=== PATIENT | male | born 2000 | race Caucasian/White ===

== ENCOUNTER 2025-07-16 00:27 | Emergency (ER) | payer OTHER, SELFPAY ==
[2025-07-16 00:28] VITALS: BP 172/91; PULSE 99; RESP 24; TEMP 36.9; O2SAT 100; BMI 55.0
--- NOTE | 2025-07-16 01:10 | RAD_ITS ---
PROCEDURE: CHEST PA AND LATERAL 07/16/2025 REASON FOR EXAM: COUGH TECHNIQUE: Procedure Code: RADCXR Modality: DX Procedure: CHEST PA AND LATERAL COMPARISON: None. FINDINGS: Mild bilateral peribronchial interstitial thickening, probably bronchitis. There is no demonstrated pleural abnormality. Normal heart and pericardium. Normal mediastinum and rachell. Normal visualized pulmonary arteries. Normal visualized aortic arch and descending thoracic aorta. Normal visualized thoracic spine. Normal visualized ribs, clavicles, and shoulders. There is no demonstrated abnormality of the visualized soft tissue structures of the upper abdomen. RAD/Chest PA and Lateral IMPRESSION: Bronchitis. [facility]
--- NOTE | 2025-07-16 01:19 | EDS_ITS ---
HPI History of Present Illness Chief Complaint: General Illness Informant: patient and spouse/S.O. Narrative Narrative: Patient is a 25-year-old male with no significant PMHx presenting with persistent cough. - Cough began 6 days ago and has become more frequent. - Describes a tickling sensation when inhaling, triggering the cough. - Associated symptoms include rhinorrhea and pharyngitis. - Denies fever, dyspnea, otalgia, or abdominal pain. - Reports soreness in the chest area when coughing, attributing it to the frequent coughing. - Denies history of asthma or other medical conditions. PFSH PFSH Medical History no medical history no medical history Home Medications ?Medication ?Instructions ?Recorded ?Last Taken ?Type benzonatate 100 mg capsule 200 mg (2 x 100 mg) PO TID PRN PRN 07/16/25 Unknown Rx Cough #20 CAPSULES Allergy/AdvReac Type Severity Reaction Status Date / Time No Known Allergies Allergy Verified 07/16/25 00:27 Surgical History no surgical history Social History Smoking Status: Never smoker ROS ROS ED Constitutional Constitutional ED: Denies chills or fever(s) ENT ENT ED: Reports rhinorrhea and sore throat; Denies ear pain or nasal congestion Cardiovascular Cardiovascular: Denies chest pain or palpitations Respiratory/Chest Respiratory/Chest: Reports cough; Denies dyspnea or sputum Gastrointestinal Gastrointestinal: Denies abdominal pain, diarrhea, nausea or vomiting Genitourinary Genitourinary ED: Denies dysuria or hematuria Musculoskeletal Musculoskeletal: Denies myalgias or neck pain Integumentary Denies abscess or rash Neurologic Neurologic: Denies headache(s), paresthesias or weakness Psychiatric Psychiatric: Denies depression or suicidal thoughts Endocrine Endocrinology: Denies polydipsia or polyuria EXAM Physical Exam Const Vital Signs: 07/16/25 00:28 07/16/25 00:40 Temperature 98.5 F Temperature Source Oral Pulse Rate 99 Respiratory Rate 24 H Respiratory Effort Normal Respiratory Pattern Normal Blood Pressure 172/91 H Blood Pressure Mean 118 Pulse Ox 100 Oxygen Delivery Method Room Air Positive well nourished, well developed and obese General Appearance ED: well developed and NAD Nutritional Appearance: obese HEENT Reports moist mucous membranes normocephalic and atraumatic Throat: Negative for posterior oropharynx abnormal Eyes PERRL and EOMs intact bilaterally Neck no lymphadenopathy, supple and no meningeal signs Resp normal respiratory effort and clear to auscultation bilaterally Cardio no murmurs Rate: regular rate Rhythm: regular rhythm Neuro oriented x3, CN's II-XII intact bilaterally and no sensory deficits noted Sensorium / Orientation: alert Motor Exam: strength 5/5 throughout Skin Lesions: no lesions Rashes: no rashes MDM MDM MDM Narrative Medical decision making narrative: Assessment: The patient is a 25-year-old male presenting for a 6-day history of persistent, progressively more frequent cough accompanied by runny nose and sore throat, without fever or shortness of breath. Lung auscultation was benign and chest X-ray showed no infiltrate or consolidation. Given the normal imaging and typical viral prodrome, acute viral bronchitis is the most likely diagnosis; antibacterial therapy is not indicated. Plan: - Administered single dose of cough medicine in ED for symptomatic relief - Prescription provided for outpatient cough suppressant - Discharge home with return precautions and routine outpatient care instructions - Blood pressure was elevated, will need follow-up appointment for recheck. Diagnostics: - Chest X-ray: clear lung maurice; no focal infiltrate or consolidation; heart size normal. Independently interpreted by Rush reynoso. Reevaluations: - Informed patient that chest X-ray was normal; discussed viral bronchitis diagnosis and symptomatic management Diagnoses: Acute bronchitis; Episode of hypertension Discharge Plan Triage Chief Complaint: General Illness ED Provider: Rush Tadeo Dx/Rx/DC Orders Clinical Impression: Acute bronchitis, viral, Episode of hypertension Instructions: ED Bronchitis, No Antibiotic (Adult), ED Hypertension, To Be Confirmed Prescriptions: New benzonatate 100 mg capsule 200 mg PO TID PRN PRN (Reason: Cough) Qty: 20 0RF Primary Care Provider: Care Physician,No Primary Referrals: Doctor,Your [Non-Staff, None] - 10-14 Days if not better Activity Restrictions/Additional Instructions: Tonight your blood pressure was 172/91. Make a routine follow-up appointment with your doctor to have this rechecked. It may simply be elevated tonight because you are ill and cannot stop coughing, but if it is persistent you may need to be on medication. Print Language: Ecuadorean Disposition Disposition: Home, Self Care
[2025-07-16 01:20] VITALS: BP 141/82; PULSE 79; RESP 19; TEMP 36.9; O2SAT 99
--- OUTSIDE RECORDS SUMMARY | 2025-07-16 01:26 | XMS RPT_ITS | CCD ---
Author Organization [facility] Care Team Providers Care Administration Professional Name Role Phone TIFFANI NULL Unavailable Unavailable Allergies Allergy Classification Reported Allergen(s) Allergy Type Date of Onset Reaction(s) Facility (1 source) OTHER; Translations: [OTHER] Propensity to adverse reactions (disorder) [facility] Repository Problems Problem Classification Problem Date Documented Da te Episodic/Chronic Unclassified (1 source) Unknown / UNK(Unknown) Onset: 05-31-2017 Results Test Name Value Interpretation Reference Range Facility Urgent Care Visit Reporton 1 Urgent Care Visit Report [facility] [address] [place] [address] [address] [place] [address] OFFICE VISIT Date of Service: 09/22/21 MR#: [id number] Acct: [id number] Name: KAHLIL SAUCEDO Rep #: [id number] : 2000 Provider: TEVIN Zepeda Age/Sex: 21/M Location: [facility] Status: Signed Intake Vital Signs 09/22/21 12:57 Height 6 ft 2 in Weight: 365 lb BMI 46.8 BP 150/96 H Blood Pressure Location Lt brachial Position Sitting Respiration 15 Pulse 81 Pulse Source Monitor Temp 98.1 F Temp Source Temporal Pulse Oximetry (%) 98 Oxygen Delivery Method room air Intake Visit Reasons: EXPOSED/COVID TEST Allergies No Known Allergies Allergy (Unverified 09/22/21 12:58) Medications NK 09/22/21 [History Confirmed 09/22/21] HPI HPI Details: KAHLIL SAUCEDO, is a 21 M who presents to the office today for request of a Covid test after exposure. Patient denies any current symptoms. ROS Const Constitutional: Positive for other (6 system ROS completed with pertinent findings in the HPI otherwise normal.) Exam Const General: cooperative and healthy appearing [facility] Head: normocephalic and atraumatic Ears: hearing grossly normal bilaterally Nose: external nose normal Face and sinus: normal facial exam and face symmetric Mouth: oral mucosae normal Throat: posterior oropharynx normal Eyes General: appearance normal, both eyes and all related structures Resp Effort Inspection: normal respiratory effort Auscultation: Bilateral: Clear to Auscultation Cardio Palpation: normal PMI Rate: regular rate Rhythm: regular rhythm Skin General: no rashes or lesions noted Neuro General: patient alert and CN's II-XI intact bilaterally Psych Appearance: grossly normal Mental Status: mental status grossly normal Results POC SARS AG POC SARS AG Negative Last Edit by Elyse Hernandez RN on 09/22/21 13:09 Coding Level of Care Code Off vis,new,level 3 Diagnoses Encounter for screening for COVID-19 Z11.52 Assessment and Plan Assessment and Plan (1) Encounter for screening for COVID-19: Status: Acute Plan - Tab ABARCA PA: Patient tested negative for Covid in the office today. Patient verbalized understanding and agreement with all the above. Plan Details Other Orders: Orders: POC Rapid SARS Antigen Today R05.9 09/22/21 1320 Date Tab ABARCA Cosigner Signature: Date (if applicable) CC: [facility] OBSOLETEon 09-30-2017 OBSOLETE Refill (PEDSWS) -KAHLIL SAUCEDO ([id number]) 2000 MDate Time Provider Department09/30/17 DEBRA IVERSON During your visit today, we recorded the following information about you:Marline Albrecht RN 09/30/2017 12:58 PM SignedLast [facility]: 05/31/2017Verify RX Benefits CompletedLast medication refill date: 07/30/2017Requesting 30 day supplyRetail pharmacy updated: CompletedImmunizations due:HPV VACCINE(1 of 3 - Male 3 Dose Series) due on 2010INFLUENZA(1) due on 05/24/2017Tera Ambrocio RNMarline Albrecht RN 09/30/2017 12:57 PM Signed 5 to Go!TM Healthy Kids InsideANDamp; Out 5 Eat FIVE fruits and veggies a day4 Give and get FOUR compliments a day3 Consume THREE calcium products a day2 Limit media time to TWO hours a day1 Get at least ONE hour of exercise a day0 Consume ZERO sugar-sweetened drinksGo! Be healthy, inside and out!www.[email or web address].[email or web address]/5 toGo Get tips for raising a healthier family. Sign up for Parents Be Welle-newsletter at [facility].org/ parentsbewell Explore our services, locations and more at [facility].org Find a wealth of family health ANDamp; wellness tips at[facility].or g/healthhub Like us on Facebook at facebook.[email or web address] Dalila Iverson MD 09/30/2017 6:24 PM SignedChart and medications reviewed.Refill on 09/30/17-lisdexamfetamine (VYVANSE) 60 mg capsule-lisdexamfetamine (VYVANSE) 60 mg capsule-lisdexamfetamine (VYVANSE) 60 mg capsulePrescription printed. Liza Baez LPN 10/01/2017 9:39 AM SignedThe following prescription has been printed and is located at the front deskfor patient fruit or nut picker. .Signed Prescriptions Disp Refills lisdexamfetamine (VYVANSE) 60 mg capsule 30 capsule 0 Sig: Take 1 capsule by mouth once daily for 30 days.Earliest Fill Date:09/30/17 AVERY Class: C-II Authorizing Provider: DEBRA IVERSON lisdexamfetamine (VYVANSE) 60 mg capsule 30 capsule 0 Sig: Take 1 capsule by mouth once daily for 30 days.Earliest Fill Date:10/30/17 AVERY Class: C-II Authorizing Provider: DEBRA IVERSON lisdexamfetamine (VYVANSE) 60 mg capsule 30 capsule 0 Sig: Take 1 capsule by mouth once daily for 30 days.Earliest Fill Date:11/29/17 AVERY Class: C-II Authorizing Provider: DEBRA IVERSON As of Date: 09/30/2017 Noted Allergy Reactionenviromental [Other] 11/30/2005Date Reviewed: 06/28/2017Reviewed by: Heather OwenBenjamin [facility]) Marlene - Fully AssessedReason for Visit: Refill Request [94]Visit Diagnosis:Attention deficit hyperactivity disorder (ADHD), unspecified ADHD type [F90.9]Order(s):lisdexamfetam ine (VYVANSE) 60 mg capsuleTake 1 capsule by mouth once daily for 30 days.Earliest Fill Date: 09/30/17Disp: 30 capsuleRfl: 0 [START ON 10/30/2017] lisdexamfetamine (VYVANSE) 60 mg capsuleTake 1 capsule by mouth once daily for 30 days.Earliest Fill Date: 10/30/17Disp: 30 capsuleRfl: 0 [START ON 11/29/2017] lisdexamfetamine (VYVANSE) 60 mg capsuleTake 1 capsule by mouth once daily for 30 days.Earliest Fill Date: 11/29/17Disp: 30 capsuleRfl: 0Prescriptions as of 09/30/2017 Sig: LISDEXAMFETAMINE 60 MG CAPSULE Take 1 capsule by mouth once * LISDEXAMFETAMINE 60 MG CAPSULE Take 1 capsule by mouth once * LISDEXAMFETAMINE 60 MG CAPSULE Take 1 capsule by mouth once * FLUOXETINE 20 MG CAPSULE Take 1 capsule by mouth once *Problem List As Of Date 09/30/2017 Noted Resolved ADHD (attention deficit hyperactivity disorder)*INVALID FOR* Autistic spectrum disorder [F84.0] INVALID FOR* Depression [F32.9] INVALID FOR* Obesity without serious comorbidity [E66.9] INVALID FOR* Other instructions from your clinician: 5 to Go!TM Healthy Kids Inside AND Out 5 Eat FIVE fruits and veggies a day 4 Give and get FOUR compliments a day 3 Consume THREE calcium products a day 2 Limit media time to TWO hours a day 1 Get at least ONE hour of exercise a day 0 Consume ZERO sugar-sweetened drinks Go! Be healthy, inside and out! www.[email or web address]/5toGo Get tips for raising a healthier family. Sign up for Parents Be Well e-newsletter at [facility].org/ parentsbewell Explore our services, locations and more at [facility].org Find a wealth of family health AND wellness tips at [facility].org/ healthhub Like us on Facebook at [email or web address]/[facility]sonActionIQ hildrensPrescriptions ordered this encounter Disp Refills Start End LISDEXAMFETAMINE 60 MG CAPSULE 30 c* 0 09/30/2017 10/30/2017 Class: Print RX Route: ORAL Sig: Take 1 capsule by mouth once daily for 30 days.Earliest Fill Date: 09/30/17 LISDEXAMFETAMINE 60 MG CAPSULE 30 c* 0 10/30/2017 11/29/2017 Class: Print RX Route: ORAL Sig: Take 1 capsule by mouth once daily for 30 days.Earliest Fill Date: 10/30/17 LISDEXAMFETAMINE 60 MG CAPSULE 30 c* 0 11/29/2017 12/29/2017 Class: Print RX Route: ORAL Sig: Take 1 capsule by mouth once daily for 30 days.Earliest Fill Date: 11/29/17Medications Discontinued During This Encounter lisdexamfetamine (VYVANSE) 60 mg cap* 30 c* 0 07/30/2017 09/30/2017 Class: Print RX Route: ORAL Sig: Take 1 capsule by mouth once daily. Disc: Duplicate Entry lisdexamfetamine (VYVANSE) 60 mg cap* 30 c* 0 06/30/2017 09/30/2017 Class: Print RX Route: ORAL Sig: Take 1 capsule by mouth once daily. Disc: Duplicate Entry lisdexamfetamine (VYVANSE) 60 mg cap* 30 c* 0 05/31/2017 09/30/2017 Class: Print RX Route: ORAL Sig: Take 1 capsule by mouth once daily. Disc: Duplicate Entry Lqxyrflfwpcppab-Znjuldtet-LV (BROMFE* 120 * 0 06/28/2017 09/30/2017 Route: ORAL Sig: Take 5 mL by mouth four times daily as needed. Disc: Course of therapy completedEncounter Number: [id number] Status:Closed by ALESSANDRA MENON LPN on 10/01/17 [facility] CNOVon 06-28-2017 CNOV Office Visit (UCWSTR) -KAHLIL SAUCEDO ([id number]) 2000 MDate Time Provider Hgsqynbmyb46/6/17 9:30 AM HEATHER ROSARIO (STERILISATION TECHNICIAN) [facility] During your visit today, we recorded the following information about you: Temperature Pulse Respiration Weight 97.3 degrees 58/minute 14/minute 119.3 kgHeather Rosario CNP 06/28/2017 9:55 AM SignedPatient is a 17 year old male presenting with cough. The history is provided bythe patient and a relative. No marketing communications associate was used.CoughPertinent negatives include no chest pain, no chills, no ear pain, noheadaches, no sore throat, no myalgias, no shortness of breath and no wheezing.HPI Kahlil Saucedo is a 17 year old male who presents today for CC of cough Thisstarted a week ago. He is also having nasal congestion and drainage Symptomsare worsened by lying down. He has tried OTC delsym. Risk factors [facility] -student PMH seasonal allergiesPulse (!) 58 Temp 36.3 ?C (97.3 ?F) (Tympanic) Resp 14 Wt 119.3 kg (263lb)ALLERGIESAllergen Reactions- Enviromental [Other]ACTIVE PROBLEM LISTAdhd (Attention Deficit Hyperactivity Disorder)Autistic Spectrum DisorderDepressionObesity Without Serious ComorbidityFamily HistoryProblem Relation Age of Onset- parathryroid problems [OTHER] Maternal GrandmotherSocial History Marital status: Single Spouse name: Years of education: Number of children:Social History Main Topics Smoking status: Never Smoker Smokeless status: Never UsedReview of SystemsConstitutional: Negative. Negative for chills, fever and malaise/fatigue.HENT: Negative for congestion, ear pain and sore throat.Respiratory: Positive for cough. Negative for sputum production, shortness ofbreath and wheezing.Cardiovascular: Negative for chest pain.Musculoskeletal: Negative for myalgias.Skin: Negative for rash.Neurological: Negative for headaches.Physical ExamConstitutional: He is well-developed, well-nourished, and in no distress.HENT:Head: Normocephalic and atraumatic.Right Ear: Tympanic membrane, external ear and ear canal normal. Tympanicmembrane is not injected, not erythematous, not retracted and not bulging. Nomiddle ear effusion.Left Ear: Tympanic membrane, external ear and ear canal normal. Tympanicmembrane is not injected, not erythematous, not retracted and not bulging. Nomiddle ear effusion.Nose: Mucosal edema and rhinorrhea present. Right sinus exhibits no maxillarysinus tenderness and no frontal sinus tenderness. Left sinus exhibits nomaxillary sinus tenderness and no frontal sinus tenderness.Mouth/Throat: Uvula is midline and mucous membranes are normal. Posteriororopharyngeal erythema present. No oropharyngeal exudate, posteriororopharyngeal edema or tonsillar abscesses.Clear PNDEyes: Conjunctivae and EOM are normal. Pupils are equal, round, and reactive tolight.Neck: Normal range of motion.Cardiovascular: Normal rate, regular rhythm and normal heart sounds.Pulmonary/Chest: Effort normal and breath sounds normal. No respiratorydistress. He has no decreased breath sounds. He has no wheezes. He has norhonchi. He has no rales.A dry cough was noted during this encounter.Talking in full sentences.Handling secretions without drooling.Lips and nailbeds are pink without cyanosis.Lymphadenopathy: Head (right side): No submental, no submandibular, no tonsillar, nopreauricular and no posterior auricular adenopathy present. Head (left side): No submental, no submandibular, no tonsillar, nopreauricular and no posterior auricular adenopathy present. He has no cervical adenopathy. Right cervical: No posterior cervical adenopathy present. Left cervical: No posterior cervical adenopathy present. Right: No supraclavicular adenopathy present. Left: No supraclavicular adenopathy present.Skin: Skin is warm and dry.Psychiatric: Affect normal.Nursing note and vitals reviewed.ASSESSMENT/PLAN:1. URI with cough and congestion - ICD9: 465.9, ICD10: J06.9- Discussed viral etiology and rationale for treatment.- Symptomatic treatment with prn analgesia- Supportive care with fluids and rest- The patient may also use behind the counter Pseudoephedrine.- Follow up in one week if symptoms persist or sooner if worsening of symptomsDO NOT take any other OTC cough or cold medication while taking theprescription Bromfed DM. It is ok to take an OTC pain reliever/fever reducerthough such as advil or tylenol as needed.* Seek medical care immediately, call 911, go to ER if you have chest pain,difficulty breathing, shortness of breath, inability to swallow.You need to rest as much as possible.Motrin or Tylenol as needed for fever or pain.Salt water gargles, chloraseptic spray or lozenges as needed for sore throat.Nasal saline irrigation at least 2 x day.Drink at least 8 glasses of fluids per day that aren't caffeinated.Eat a nutritious diet.Use a humidifier in your room at night.- BROMPHENIRAMINE-PSEUDOEPHEDRI NE-DM 2 MG-30 MG-10 MG/5 ML SYRUP - previouslytolerated with medicationDiagnosis and treatment plan were discussed and questions were answered to thepatient's satisfaction. Pt acknowledged understanding of concepts and follow upplan.Specific signs and symptoms that would indicate the need for higher level ofcare were discussed in detail warranting prompt ER evaluation.Daron Arroyo CNP 06/28/2017 9:51 AM AddendumASSESSMENT/PLAN:1. URI with cough and congestion - ICD9: 465.9, ICD10: J06.9- Discussed viral etiology and rationale for treatment.- Symptomatic treatment with prn analgesia- Supportive care with fluids and rest- The patient may also use behind the counter Pseudoephedrine.- Follow up in one week if symptoms persist or sooner if worsening of symptomsDO NOT take any other OTC cough or cold medication while taking theprescription Bromfed DM. It is ok to take an OTC pain reliever/fever reducerthough such as advil or tylenol as needed.* Seek medical care immediately, call 911, go to ER if you have chest pain,difficulty breathing, shortness of breath, inability to swallow.You need to rest as much as possible.Motrin or Tylenol as needed for fever or pain.Salt water gargles, chloraseptic spray or lozenges as needed for sore throat.Nasal saline irrigation at least 2 x day.Drink at least 8 glasses of fluids per day that aren't caffeinated.Eat a nutritious diet.Use a humidifier in your room at night.- BROMPHENIRAMINE-PSEUDOEPHEDRI NE-DM 2 MG-30 MG-10 MG/5 ML SYRUPReferring Provider: SELF [200]Allergies As of Date: 06/28/2017 Noted Allergy Reactionenviromental [Other] 11/30/2005Date Reviewed: 06/28/2017Reviewed by: Heather ([facility]) Marlene - Fully AssessedReason for Visit: Cough [28] Cmt: with congestion x 1 weekPrimary Visit Diagnosis:URI with cough and congestion [J06.9]Order(s):Bromphenirami os-Sbkktrcak-BQ (BROMFED DM) 2-30-10 mg/5 mL syrupTake 5 mL by mouth four times daily as needed.Disp: 120 mLRfl: 0Prescriptions as of 06/28/2017 Sig: LISDEXAMFETAMINE 60 MG CAPSULE Take 1 capsule by mouth once * LISDEXAMFETAMINE 60 MG CAPSULE Take 1 capsule by mouth once * LISDEXAMFETAMINE 60 MG CAPSULE Take 1 capsule by mouth once * FLUOXETINE 20 MG CAPSULE Take 1 capsule by mouth once * BROMPHENIRAMINE-PSEUDOEPHEDRI * Take 5 mL by mouth four times*Problem List As Of Date 06/28/2017 Noted Resolved ADHD (attention deficit hyperactivity disorder)*INVALID FOR* Autistic spectrum disorder [F84.0] INVALID FOR* Depression [F32.9] INVALID FOR* Obesity without serious comorbidity [E66.9] INVALID FOR* Other instructions from your clinician: ASSESSMENT/PLAN: 1. URI with cough and congestion - ICD9: 465.9, ICD10: J06.9 - Discussed viral etiology and rationale for treatment. - Symptomatic treatment with prn analgesia - Supportive care with fluids and rest - The patient may also use behind the counter Pseudoephedrine. - Follow up in one week if symptoms persist or sooner if worsening of symptoms DO NOT take any other OTC cough or cold medication while taking the prescription Bromfed DM. It is ok to take an OTC pain reliever/fever health care law specialist though such as advil or tylenol as needed. * Seek medical care immediately, call 911, go to ER if you have chest pain, difficulty breathing, shortness of breath, inability to swallow. You need to rest as much as possible. Motrin or Tylenol as needed for fever or pain. Salt water gargles, chloraseptic spray or lozenges as needed for sore throat. Nasal saline irrigation at least 2 x day. Drink at least 8 glasses of fluids per day that aren't caffeinated. Eat a nutritious diet. Use a humidifier in your room at night. - BROMPHENIRAMINE-PSEUDOEPHEDRI NE-DM 2 MG-30 MG-10 MG/5 ML SYRUPPrescriptions ordered this encounter Disp Refills Start End BROMPHENIRAMINE-PSEUDOEPHEDRI NE-DM 2* 120 * 0 06/28/2017 Route: ORAL Sig: Take 5 mL by mouth four times daily as needed.Letter Justino Rosario CNP Urgent [id number] [facility] [address]Lbna: [phone]/6/2017Kahlil Saucedo[address] [facility] [address]Zw Whom it May Concern:This is to certify that Kahlil Saucedo was seen at our office for medical care.Kahlil may return to school on 07.01.2017.If you have any questions please feel free to call.Sincerely:Heather Rosario CNPEncounter Number: [id number] Status:Closed by HEATHER ROSARIO CNP on 06/28/17 [facility] PROGRESSon 06-28-2017 PROGRESS HNO ID: [id number] thor: Heather Roldanervice: (none)Author Type: Nurse PractitionerType: Progress NotesFiled: 06/28/2017 9:55 AMNote Text:Patient is a 17 year old male presenting with cough. The history isprovided by the patient and a relative. No marketing communications associate was used.CoughPertinent negatives include no chest pain, no chills, no ear pain, noheadaches, no sore throat, no myalgias, no shortness of breath and nowheezing.HPI Kahlil Saucedo is a 17 year old male who presents today for CC of coughThis started a week ago. He is also having nasal congestion and drainage Symptoms are worsened by lying down. He has tried OTC delsym. Riskfactors [employer] - student PMH seasonal allergiesPulse (!) 58 Temp 36.3 ?C (97.3 ?F) (Tympanic) Resp 14 Wt 119.3 kg(263 lb)ALLERGIESAllergen Reactions- Enviromental [Other]ACTIVE PROBLEM LISTAdhd (Attention Deficit Hyperactivity Disorder)Autistic Spectrum DisorderDepressionObesity Without Serious ComorbidityFamily HistoryProblem Relation Age of Onset- parathryroid problems [OTHER] Maternal GrandmotherSocial History Marital status: Single Spouse name: Years of education: Number of children:Social History Main Topics Smoking status: Never Smoker Smokeless status: Never UsedReview of SystemsConstitutional: Negative. Negative for chills, fever and malaise/fatigue.HENT: Negative for congestion, ear pain and sore throat.Respiratory: Positive for cough. Negative for sputum production, shortnessof breath and wheezing.Cardiovascular: Negative for chest pain.Musculoskeletal: Negative for myalgias.Skin: Negative for rash.Neurological: Negative for headaches.Physical ExamConstitutional: He is well-developed, well-nourished, and in no distress.HENT:Head: Normocephalic and atraumatic.Right Ear: Tympanic membrane, external ear and ear canal normal. Tympanicmembrane is not injected, not erythematous, not retracted and not bulging.No middle ear effusion.Left Ear: Tympanic membrane, external ear and ear canal normal. Tympanicmembrane is not injected, not erythematous, not retracted and not bulging. No middle ear effusion.Nose: Mucosal edema and rhinorrhea present. Right sinus exhibits nomaxillary sinus tenderness and no frontal sinus tenderness. Left sinusexhibits no maxillary sinus tenderness and no frontal sinus tenderness.Mouth/Throat: Uvula is midline and mucous membranes are normal. Posteriororopharyngeal erythema present. No oropharyngeal exudate, posteriororopharyngeal edema or tonsillar abscesses.Clear PNDEyes: Conjunctivae and EOM are normal. Pupils are equal, round, andreactive to light.Neck: Normal range of motion.Cardiovascular: Normal rate, regular rhythm and normal heart sounds.Pulmonary/Chest: Effort normal and breath sounds normal. No respiratorydistress. He has no decreased breath sounds. He has no wheezes. He has norhonchi. He has no rales.A dry cough was noted during this encounter.Talking in full sentences.Handling secretions without drooling.Lips and nailbeds are pink without cyanosis.Lymphadenopathy: Head (right side): No submental, no submandibular, no tonsillar, nopreauricular and no posterior auricular adenopathy present. Head (left side): No submental, no submandibular, no tonsillar, nopreauricular and no posterior auricular adenopathy present. He has no cervical adenopathy. Right cervical: No posterior cervical adenopathy present. Left cervical: No posterior cervical adenopathy present. Right: No supraclavicular adenopathy present. Left: No supraclavicular adenopathy present.Skin: Skin is warm and dry.Psychiatric: Affect normal.Nursing note and vitals reviewed.ASSESSMENT/PLAN:1. URI with cough and congestion - ICD9: 465.9, ICD10: J06.9- Discussed viral etiology and rationale for treatment.- Symptomatic treatment with prn analgesia- Supportive care with fluids and rest- The patient may also use behind the counter Pseudoephedrine.- Follow up in one week if symptoms persist or sooner if worsening ofsymptomsDO NOT take any other OTC cough or cold medication while taking theprescription Bromfed DM. It is ok to take an OTC pain reliever/feverreducer though such as advil or tylenol as needed.* Seek medical care immediately, call 911, go to ER if you have chestpain, difficulty breathing, shortness of breath, inability to swallow.You need to rest as much as possible.Motrin or Tylenol as needed for fever or pain.Salt water gargles, chloraseptic spray or lozenges as needed for sorethroat.Nasal saline irrigation at least 2 x day.Drink at least 8 glasses of fluids per day that aren't caffeinated.Eat a nutritious diet.Use a humidifier in your room at night.- BROMPHENIRAMINE-PSEUDOEPHEDRI NE-DM 2 MG-30 MG-10 MG/5 ML SYRUP -previously tolerated with medicationDiagnosis and treatment plan were discussed and questions were answered tothe patient's satisfaction. Pt acknowledged understanding of concepts andfollow up plan.Specific signs and symptoms that would indicate the need for higher levelof care were discussed in detail warranting prompt ER evaluation.Heather Rosario, STERILISATION TECHNICIAN [facility] CNOVon 05-31-2017 CNOV Office Visit (PEDSWS) -KAHLIL SAUCEDO ([id number]) 2000 MDate Time Provider Department05/31/17 8:00 AM TIFFANI NULL During your visit today, we recorded the following information about you: Temperature Pulse Respiration Blood pressure 97.3 degrees 54/minute 16/minute 120/80 Weight Height 116.6 kg 1.867 mMreta Null MD 05/31/2017 8:47 AM Dprvvq34 year old male presents for a routine 12+ year check-up. [] GENERAL QUESTIONS color enhancedsectionPatient concerns: NONEParental concerns: Issues: sore throatDiet: milk: 1%; balanced diet; specific issues: NONEStools: NORMAL (soft and appropriately sized)Urine: NO PROBLEMSFluorideWater: uses significant amount of well waterPrescription: age 17+ years - no fluoride supplement indicatedOngoing subspecialty care: NONEOngoing ancillary care: NONESchool/etc: 12th, doing well, grades B-C.Interests ANDamp; Activities: workingSignificant stresses: No [] SPORTS QUESTIONS color enhancedsectionHistory of seizures: NoHistory of concussion: NoHistory of syncope: NoHistory of heart problems: NoHistory of hypertension: NoHistory of asthma: NoHistory of single kidney: NoHistory of skeletal problems: NoHistory of any significant injury: NoFamily history of either heart problems or sudden ANDlt;age 40 years: No MEDICAL HISTORYPast medical history:IMPORTEDPAST MEDICAL HISTORYDiagnosis Date- PMH - PAST MEDICAL HISTORY OF undescended testicles- PMH - PAST MEDICAL HISTORY OF autism- PMH - PAST MEDICAL HISTORY OF 06/12/04 normal color visionIMPORTEDPAST SURGICAL HISTORYProcedure Laterality Date- PAST SURGICAL HISTORY OF testicle surgeryFamily history:IMPORTEDFAMILY HISTORYProblem Relation Age of Onset- parathryroid problems [OTHER] Maternal Grandmother [] SOCIAL HISTORY colorenhanced sectionSexual activity: NoSubstance abuse and smoking: NoHigh risk behaviors: NONEMental health: POSITIVE OUTLOOKSocial history obtained when patient was alone [] MISCELLANEOUS colorenhanced sectionDifficulties with learning for patient: Yes, barriers: ADHD, Autism VISION ANDamp; HEARING ASSESSMENTEye doctor visit within the past year: NoVision:Correction: NONE, As tested: NONEAcuity: RIGHT: LEFT: Hearing concerns: No [] ADDITIONAL NURSING COMMENTS color enhanced sectionDung Edyjacobo CASTRON PHYSICAL EXAM (to re-import BP% use.BPFA)Blood pressure: Blood pressure percentiles are 33.9 % systolic and 72.0 %diastolic based on NHBPEP's 4th Report.GENERAL: alert, well appearing, in no distressHABITUS: overweightHEAD: normocephalicLEFT EYE: no drainage noted, no conjunctival injection noted, pupil round andreactive to light, red reflex present; RIGHT EYE: no drainage noted, noconjunctival injection noted, pupil round and reactive to light, red reflexpresent; NO ADDITIONAL EYE FINDINGSLEFT EAR: pinna normal, auditory canal normal, tympanic membrane clear, noeffusion noted, RIGHT EAR: pinna normal, auditory canal normal, tympanicmembrane clear, no effusion notedNOSE/SINUSES: nares normal, mucosa normal, no drainage notedOROPHARYNX: lips without lesions noted, gums/mucosa normal, oropharynx withouterythema or exudatesNECK/ADENOPATHY: neck supple, no adenopathy notedCHEST/LUNGS: lungs clear to auscultationCARDIOVASCULAR: regular rate and rhythm, no murmur, capillary refill less than2 secondsABDOMEN: soft, nontender, bowel sounds normal, no masses, no organomegalyGENITILIA: MALE: penis normal, testicles down bilaterally, no hernias notedMUSCULOSKELETAL: extremities with full range of motion present throughout,spine without scoliosisNEUROLOGICAL: cranial nerves II-XII grossly intact, deep tendon reflexes 2+/4+throughout, muscle mass and tone normalSKIN: normal color, no rash, no jaundice [] ASSESSMENT colorenhanced sectionWell patientNormal growthIssues:ADHD and depression - stable on current doses of prozac and vyvanseObesity - will check screening labs.Sore throat x 1 day. Also with nasal congestion and cough. Rapid strep neg.Likely due to viral URI PLANPlan per orders.Counseling: exercise, sports safety 2% (or less) milk, balanced diet, limit sugar and high fat foods dental care adequate sleep, limit TV / video and computer games social interactions with family and peers school issues drug, alcohol and tobacco use sexual activity and control mental health and abuse / domestic violence issuesForms filled out: NONEFollow up visit in 1 year for routine care or prn with concerns.I have reviewed the above nursing obtained HPI and I concur.Tiffani Null, Connie Null MD 05/31/2017 8:19 AM AddendumPHYSICAL GROWTH AND DEVELOPMENTYour Daily Life? Visit the dentist at least twice a year.? Protect your hearing at work, home, and concerts.? Eat a variety of healthy foods.? Eat breakfast every morning.? Drink plenty of water.? Make sure to get enough calcium.? Have 3 or more servings of low-fat (1%) or fat-free milk or other low-fatdairy products each day.? Aim for 1 hour of vigorous physical activity.? Be proud of yourself when you do something well.RISK REDUCTIONHealthy Behavior Choices? Support friends who choose not to use drugs, alcohol, tobacco, steroids, ordiet pills.? If you use drugs or alcohol, you can talk to us about it. We can help youwith quitting or cutting down on your use.? Make healthy decisions about your sexual behavior.? If you are sexually active, always practice safe sex. Always use a condom toprevent STIs.? All sexual activity should be something you want. No one should ever force ortry to convince you.? Find safe activities at school and in the community.VIOLENCE AND INJURY PREVENTIONViolence and Injuries? Do not drink and drive or ride in a vehicle with someone who has been usingdrugs or alcohol.? If you feel unsafe driving or riding with someone, call someone you trust todrive you.? Always wear a seat belt in a car.? Know the rules for safe driving.? Never allow physical harm of yourself or others at home or school.? Always deal with conflict using nonviolence.? Remember that healthy dating relationships are built on respect and thatsaying ?no? is OK.? Fighting and carrying weapons can be dangerous.EMOTIONAL WELL-BEINGYour Feelings? Figure out healthy ways to deal with stress.? Try your best to solve problems and make decisions on your own.? Most people have daily ups and downs. But if you are feeling sad, depressed,nervous, irritable, hopeless, or angry, talk with me or another healthprofessional.? We understand sexuality is an important part of your development. If you haveany questions or concerns, we are here for you.SOCIAL AND ACADEMIC COMPETENCESchool and Friends? Take responsibility for being organized enough to succeed in work or school.? Find new activities you enjoy.? Consider volunteering and helping others in the community on an issue thatinterests or concerns you.? Form healthy friendships and find fun, safe things to do with friends.? As you get older, making and keeping friends is important. You may find thatyou drift away from some of your old friends---that?s normal.? Evaluate your friendships and keep those that are healthy.? It is still important to stay connected with your family.14-18 yearsFueling Your Thoughts? Are you concerned with your child's eating habits or level of activity?? Do you and your child eat vegetables every day?? How many meals do you eat as a family each week? How many are from fastfood, take out, etc?? What beverages do you buy?? How much time does your child watch TV, play on the computer, play videogames, or text daily?? What do you and your child do to stay active?Nutrition TipsBy providing nutritious foods to your child, you help him or her improvestrength, energy, attention span and the ability to keep up with friends.? Breakfast - Eating a healthy breakfast every day is recommended.? Lunch - Review school menus with your child and plan ahead; or pack a lunchwith at least 4 out of the 5 food groups (calcium foods, fruits, vegetables,whole grains and lean protein).? Snacks - Eat only when hungry. Stock up on wqlbx-io-pxy vegetables, fruit,cheese, yogurt, milk, lean meats, whole grains, low sugar cereal or nuts.? Dinner - Eat as many meals as possible as a family at the dinner table. Besure to slow down, enjoy, and turn off screens.? Eating Out - Keep portion sizes small or share meals (don't ANDquot;supersizeANDquot;).Ch oose fruit or salad instead of fries, milk instead of soft drinks, baked orbroiled instead of fried.? Beverages - Think Your Drink!? The best choices are water or milk.? Limit sweetened beverages such as soft drinks, iced teas, energy drinks andcaffeine-containing beverages.? Regular intake of too much caffeine can lead to trouble sleeping, rapid heartrate, anxiety, poor attention span, headaches or shakiness.Your main job is to offer a variety of healthy foods (fruits, vegetables, milk,yogurt, cheese, whole grains, mere, poultry, fish and eggs).Parents? Make sure you and your kids are active 60 minutes every day. Focus on FUN,including both organized and free play.? Count time spent doing chores: car washing, walking the dog, dusting,sweeping, pulling weeds, raking leaves or shoveling snow.? Involve the whole family in physical activity because you are role models!? Be a good role model for your kids - be active and eat healthy foods.? ANDquot;Screen timeANDquot; (computers, TV, phones, leilani systems, texting,etc.) should be limited to 2 hours or less daily (pre-plan how ANDquot;screentimeANDquot; will be used).? Screens may be monitored easily if moved to a common area; keep them out [facility] bedroom.? Make sure your child is sleeping at least 10-11 hours per night. Keepingregular bed time is critical to good health and weight management.? Caffeine can interfere with a healthy sleep routine.? If you have concerns about your child's weight, physical activity or eatingbehaviors, ask your healthcare provider.Tips Regarding Teens? Do not criticize your teenager about their size and shape. Focus onstrengths rather than appearance.? Remember that parents can still influence choices...as a parent you are stillthe role model! 5 to Go!TM Healthy Kids InsideANDamp; Out 5 Eat FIVE fruits and veggies a day4 Give and get FOUR compliments a day3 Consume THREE calcium products a day2 Limit media time to TWO hours a day1 Get at least ONE hour of exercise a day0 Consume ZERO sugar-sweetened drinksGo! Be healthy, inside and out!www.[email or web address].org/5 Donald Get tips for raising a healthier family. Sign up for Parents Be Welle-newsletter at [email or web address].[email or web address]/ parentsbewell Explore our services, locations and more at [facility].org Find a wealth of family health ANDamp; wellness tips [facility].or g/healthhub Like us on Facebook at Xockets.com/[facility] jacksonActionIQ jeremiah 5 to Go!TM Healthy Kids InsideANDamp; Out 5 Eat FIVE fruits and veggies a day4 Give and get FOUR compliments a day3 Consume THREE calcium products a day2 Limit media time to TWO hours a day1 Get at least ONE hour of exercise a day0 Consume ZERO sugar-sweetened drinksGo! Be healthy, inside and out!www.[facility]Id[facility].org/5 Donald Get tips for raising a healthier family. Sign up for Parents Be Welle-newsletter at [facility].org/ parentsbewell Explore our services, locations and more at [facility].org Find a wealth of family health ANDamp; wellness tips atcveterans health administration.or g/healthhub Like us on Facebook at Xockets.com/[facility] hildrensReferring Provider: SELF [200]Allergies As of Date: 05/31/2017 Noted Allergy Reactionenviromental [Other] 11/30/2005Date Reviewed: 05/31/2017Reviewed by: Tiffani Null - Fully AssessedReason for Visit: Physical [83] Cmt: 17 year oldPrimary Visit Diagnosis:Encounter for general adult medical examination without abnormal findings [Z00.00] Other Visit Diagnoses:Abnormal weight gain [R63.5] Imbalanced nutrition due to less than body requirements [E63.8] Acute pharyngitis, unspecified etiology [J02.9] Attention deficit hyperactivity disorder (ADHD), unspecified ADHD type [F90.9] Obesity without serious comorbidity, unspecified classification, unspecified obesity type [E66.9]Order(s):AST/SGOT BLD [SQAST] Order #: [id number] FUTURE ALT/SGPT [SQALT] Order #: [id number] FUTURE LIPID PANEL BASIC [SQLIPB] Order #: [id number] FUTURE GLUCOSE FASTING BLD [SQGLF] Order #: [id number] FUTURE HGB A1C [WALCA4Y] Order #: [id number] FUTURE VITAMIN D 25 HYDROXY [SQVITD] Order #: [id number] FUTURE RAPID STREP TEST B/O [3826309] Order #: [id number] GROUP A STREPTOCOCCUS BY PCR [SQGASPCR] Order #: [id number] lisdexamfetamine (VYVANSE) 60 mg capsuleTake 1 capsule by mouth once daily.Disp: 30 capsuleRfl: 0 [START ON 06/30/2017] lisdexamfetamine (VYVANSE) 60 mg capsuleTake 1 capsule by mouth once daily.Disp: 30 capsuleRfl: 0 [START ON 07/30/2017] lisdexamfetamine (VYVANSE) 60 mg capsuleTake 1 capsule by mouth once daily.Disp: 30 capsuleRfl: 0Prescriptions as of 05/31/2017 Sig: FLUOXETINE 20 MG CAPSULE Take 1 capsule by mouth once * LISDEXAMFETAMINE 60 MG CAPSULE Take 1 capsule by mouth once * LISDEXAMFETAMINE 60 MG CAPSULE Take 1 capsule by mouth once * LISDEXAMFETAMINE 60 MG CAPSULE Take 1 capsule by mouth once *Problem List As Of Date 05/31/2017 Noted Resolved ADHD (attention deficit hyperactivity disorder)*INVALID FOR* Autistic spectrum disorder [F84.0] INVALID FOR* Depression [F32.9] INVALID FOR* Obesity without serious comorbidity [E66.9] INVALID FOR* Other instructions from your clinician: PHYSICAL GROWTH AND DEVELOPMENT Your Daily Life ? Visit the dentist at least twice a year. ? Protect your hearing at work, home, and concerts. ? Eat a variety of healthy foods. ? Eat breakfast every morning. ? Drink plenty of water. ? Make sure to get enough calcium. ? Have 3 or more servings of low-fat (1%) or fat-free milk or other low-fat dairy products each day. ? Aim for 1 hour of vigorous physical activity. ? Be proud of yourself when you do something well. RISK REDUCTION Healthy Behavior Choices ? Support friends who choose not to use drugs, alcohol, tobacco, steroids, or diet pills. ? If you use drugs or alcohol, you can talk to us about it. We can help you with quitting or cutting down on your use. ? Make healthy decisions about your sexual behavior. ? If you are sexually active, always practice safe sex. Always use a condom to prevent STIs. ? All sexual activity should be something you want. No one should ever force or try to convince you. ? Find safe activities at school and in the community. VIOLENCE AND INJURY PREVENTION Violence and Injuries ? Do not drink and drive or ride in a vehicle with someone who has been using drugs or alcohol. ? If you feel unsafe driving or riding with someone, call someone you trust to drive you. ? Always wear a seat belt in a car. ? Know the rules for safe driving. ? Never allow physical harm of yourself or others at home or school. ? Always deal with conflict using nonviolence. ? Remember that healthy dating relationships are built on respect and that saying ?no? is OK. ? Fighting and carrying weapons can be dangerous. EMOTIONAL WELL-BEING Your Feelings ? Figure out healthy ways to deal with stress. ? Try your best to solve problems and make decisions on your own. ? Most people have daily ups and downs. But if you are feeling sad, depressed, nervous, irritable, hopeless, or angry, talk with me or another health professional. ? We understand sexuality is an important part of your development. If you have any questions or concerns, we are here for you. SOCIAL AND ACADEMIC COMPETENCE School and Friends ? Take responsibility for being organized enough to succeed in work or school. ? Find new activities you enjoy. ? Consider volunteering and helping others in the community on an issue that interests or concerns you. ? Form healthy friendships and find fun, safe things to do with friends. ? As you get older, making and keeping friends is important. You may find that you drift away from some of your old friends---that?s normal. ? Evaluate your friendships and keep those that are healthy. ? It is still important to stay connected with your family. 14-18 years Fueling Your Thoughts ? Are you concerned with your child's eating habits or level of activity? ? Do you and your child eat vegetables every day? ? How many meals do you eat as a family each week? How many are from fast food, take out, etc? ? What beverages do you buy? ? How much time does your child watch TV, play on the computer, play video games, or text daily? ? What do you and your child do to stay active? Nutrition Tips By providing nutritious foods to your child, you help him or her improve strength, energy, attention span and the ability to keep up with friends. ? Breakfast - Eating a healthy breakfast every day is recommended. ? Lunch - Review school menus with your child and plan ahead; or pack a lunch with at least 4 out of the 5 food groups (calcium foods, fruits, vegetables, whole grains and lean protein). ? Snacks - Eat only when hungry. Stock up on [id number] vegetables, fruit, cheese, yogurt, milk, lean meats, whole grains, low sugar cereal or nuts. ? Dinner - Eat as many meals as possible as a family at the dinner table. Be sure to slow down, enjoy, and turn off screens. ? Eating Out - Keep portion sizes small or share meals (don't super size). Choose fruit or salad instead of fries, milk instead of soft drinks, baked or broiled instead of fried. ? Beverages - Think Your Drink! ? The best choices are water or milk. ? Limit sweetened beverages such as soft drinks, iced teas, energy drinks and caffeine-containing beverages. ? Regular intake of too much caffeine can lead to trouble sleeping, rapid heart rate, anxiety, poor attention span, headaches or shakiness. Your main job is to offer a variety of healthy foods (fruits, vegetables, milk, yogurt, cheese, whole grains, mere, poultry, fish and eggs). Parents ? Make sure you and your kids are active 60 minutes every day. Focus on FUN, including both organized and free play. ? Count time spent doing chores: car washing, walking the dog, dusting, sweeping, pulling weeds, raking leaves or shoveling snow. ? Involve the whole family in physical activity because you are role models! ? Be a good role model for your kids - be active and eat healthy foods. ? Screen time (computers, TV, phones, leilani systems, texting, etc.) should be limited to 2 hours or less daily (pre-plan how screen time will be used). ? Screens may be monitored easily if moved to a common area; keep them out of child's bedroom. ? Make sure your child is sleeping at least 10-11 hours per night. Keeping regular bed time is critical to good health and weight management. ? Caffeine can interfere with a healthy sleep routine. ? If you have concerns about your child's weight, physical activity or eating behaviors, ask your healthcare provider. Tips Regarding Teens ? Do not criticize your teenager about their size and shape. Focus on strengths rather than appearance. ? Remember that parents can still influence choices...as a parent you are still the role model! 5 to Go!TM Healthy Kids Inside AND Out 5 Eat FIVE fruits and veggies a day 4 Give and get FOUR compliments a day 3 Consume THREE calcium products a day 2 Limit media time to TWO hours a day 1 Get at least ONE hour of exercise a day 0 Consume ZERO sugar-sweetened drinks Go! Be healthy, inside and out! www.[email or web address]/5toGo Get tips for raising a healthier family. Sign up for Parents Be Well e-newsletter at [facility].org/ parentsbewell Explore our services, locations and more at [facility] hospitalCool Containers Find a wealth of family health AND wellness tips at HookLogiccape cod hospitalCool Containers/ Primeloop Like us on Facebook at Xockets.[employer]/HookLogicfirelands regional medical center south campusExplorraesdras 5 to Go!TM Healthy Kids Inside AND Out 5 Eat FIVE fruits and veggies a day 4 Give and get FOUR compliments a day 3 Consume THREE calcium products a day 2 Limit media time to TWO hours a day 1 Get at least ONE hour of exercise a day 0 Consume ZERO sugar-sweetened drinks Go! Be healthy, inside and out! www.[email or web address]/5toGo Get tips for raising a healthier family. Sign up for Parents Be Well e-newsletter at HookLogicfirelands regional medical center south campusGame Trading technologies, Inc./ [employer] Explore our services, locations and more at HookLogicfirelands regional medical center south campusMobstatsCool Containers Find a wealth of family health AND wellness tips at HookLogicfirelands regional medical center south campusIron Gamingcharles river hospitalCool Containers/ Primeloop Like us on Facebook at Xockets.[employer]/HookLogicfirelands regional medical center south campusFileString jeremiahPrescriptions ordered this encounter Disp Refills Start End LISDEXAMFETAMINE 60 MG CAPSULE 30 c* 0 05/31/2017 Class: Print RX Route: ORAL Sig: Take 1 capsule by mouth once daily. LISDEXAMFETAMINE 60 MG CAPSULE 30 c* 0 06/30/2017 Class: Print RX Route: ORAL Sig: Take 1 capsule by mouth once daily. LISDEXAMFETAMINE 60 MG CAPSULE 30 c* 0 07/30/2017 Class: Print RX Route: ORAL Sig: Take 1 capsule by mouth once daily.Medications Discontinued During This Encounter lisdexamfetamine (VYVANSE) 60 mg cap* 30 c* 0 01/08/2017 05/31/2017 Class: Print RX Route: ORAL Sig: Take 1 capsule by mouth once daily. Disc: Reason for discontinue is not on file. lisdexamfetamine (VYVANSE) 60 mg cap* 30 c* 0 12/10/2016 05/31/2017 Class: Print RX Route: ORAL Sig: Take 1 capsule by mouth once daily. Disc: Reason for discontinue is not on file. lisdexamfetamine (VYVANSE) 60 mg cap* 30 c* 0 05/16/2017 05/31/2017 Class: Print RX Route: ORAL Sig: Take 1 capsule by mouth once daily. Disc: Reason for discontinue is not on file.Disposition: Return for Follow-up in one year for routine physical.Follow-up and Disposition History Recorded -Questionnaire: PED PHQ 91. Feeling down, depressed, irritable or hopeless? -> 0 - Not at All2. Little interest or pleasure in doing things? -> 0 - Not At All3. Trouble falling asleep, staying asleep, or sleeping too much? -> 0 - Not At All4. Poor appetite, weight loss, or overeating? -> 1 - Several Days5. Feeling tired or little energy? -> 0 - Not At All6. Feeling bad about yourself-or feeling that you are a failure or that youhave let yourself or your family down? -> 0 - Not At All7. Trouble concentrating on things like school work, reading or watching TV? -> 1 - Se- ve- ra- l Da- ys8. Moving or speaking so slowly that other people could have notices? Or theopposite-being so fidgety or restless that you were moving around a lot morethan usual? -> 0 - Not At All9. Thoughts that you would be better off or of hurting yourself in someway? -> 0 - Not At All10. In the past year have you felt depressed or sad most days, even if you feltokay sometimes? -> No11. If you are experiencing any of the problems listed on this questionnaire,how difficult have these problems made it for you to do your work, take care ofthings at home or get along with other people? -> Not at all [id number]. Has there been a time in the past month when you have had serious thoughtsabout ending your life? -> No13. Have you ever tried to kill yourself or made a suicide attempt? -> NoSCORE -> 2Total Score: Depression Severity -> 01-04=Minimal depressionEncounter Number: [id number] Status:Closed by TIFFANI NULL MD on 05/31/17 [facility] Group A Strep by PCRon 05-31 GAS Specimen Source Throat Swab [facility] Comment on above: Performed By: #### GASPCR ####[facility], [place] [id number] Group A Strep PCR Negative [facility] Comment on above: Result Comment: This test was developed and its performance characteristics determined by [facility]'s [facility] [place] ([facility]).It has not been cleared or approved by the FDA. -[facility] is regulated under CLIA as qualified to perform high-complexity testing. This test is used for clinical purposes. It should not be regarded as investigational or for research. Performed By: #### G ASPCR ####[facility], [place] [phone] PROGRESSon 05-31-2017 PROGRESS HNO ID: [id number] thor: Tiffani Langely: (none)Author Type: PhysicianType: Progress NotesFiled: 05/31/2017 8:47 AMNote Text:17 year old male presents for a routine 12+ year check-up. [] GENERAL QUESTIONS colorenhanced sectionPatient concerns: NONEParental concerns: Issues: sore throatDiet: milk: 1%; balanced diet; specific issues: NONEStools: NORMAL (soft and appropriately sized)Urine: NO PROBLEMSFluorideWater: uses significant amount of well waterPrescription: age 17+ years - no fluoride supplement indicatedOngoing subspecialty care: NONEOngoing ancillary care: NONESchool/etc: 12th, doing well, grades B-C.Interests AND Activities: workingSignificant stresses: No [] SPORTS QUESTIONS colorenhanced sectionHistory of seizures: NoHistory of concussion: NoHistory of syncope: NoHistory of heart problems: NoHistory of hypertension: NoHistory of asthma: NoHistory of single kidney: NoHistory of skeletal problems: NoHistory of any significant injury: NoFamily history of either heart problems or sudden [facility] OBSOLETEon 05-15-2017 OBSOLETE Refill (PEDSWS) -KAHLIL SAUCEDO ([id number]) 2000 MDate Time Provider Department05/15/17 DEBRA IVERSON During your visit today, we recorded the following information about you:Mireya Giles RN 05/15/2017 3:21 PM SignedLast C: 04/07Last ADHD / Med Check visit: 07/08 - booked for 06/09Verify RX Benefits CompletedLast medication refill date: 02/06 - off med for the summerRequesting 30 day supplyImmunizations due:HPV VACCINE(1 of 3 - Male 3 Dose Series) due on 2010INFLUENZA(1) due on 05/24/2017Mireya Iverson MD 05/16/2017 11:19 AM SignedChart and medications reviewed.Refill on 05/15/17-lisdexamfetamine (VYVANSE) 60 mg capsulePrescription printed. 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 AVERY Class: C-II BEENA: No Authorizing Provider: DEBRA IVERSON As of Date: 05/15/2017 Noted Allergy Reactionenviromental [Other] 11/30/2005Date Reviewed: 07/09/2016Reviewed by: Yasemin Grullon Ma - Fully AssessedReason for Visit: Refill Request [94]Order(s):lisdexamfetamine (VYVANSE) 60 mg capsuleTake 1 capsule by mouth once daily.Disp: 30 capsuleRfl: 0Prescriptions as of 05/15/2017 Sig: LISDEXAMFETAMINE 60 MG CAPSULE Take 1 capsule by mouth once * FLUOXETINE 20 MG CAPSULE Take 1 capsule by mouth once * LISDEXAMFETAMINE 60 MG CAPSULE Take 1 capsule by mouth once * LISDEXAMFETAMINE 60 MG CAPSULE Take 1 capsule by mouth once *Problem List As Of Date 05/15/2017 Noted Resolved ADHD (attention deficit hyperactivity disorder)*INVALID FOR* Autistic spectrum disorder [F84.0] INVALID FOR* Depression [F32.9] INVALID FOR*Prescriptions ordered this encounter Disp Refills Start End LISDEXAMFETAMINE 60 MG CAPSULE 30 c* 0 05/16/2017 Class: Print RX Route: ORAL Sig: Take 1 capsule by mouth once daily.Medications Discontinued During This Encounter lisdexamfetamine (VYVANSE) 60 mg cap* 30 c* 0 02/06/2017 05/16/2017 Class: Print RX Route: ORAL Sig: Take 1 capsule by mouth once daily. Disc: Reason for discontinue is not on file. Status:Closed by MARLINE ALBRECHT RN on 05/16/17 [facility] Encounters Encounter Date Encounter Type Care Provider Facility Start: 06-28-2017 End: 07-03-2017 [facility]ulatory [facility] Start: 05-31-2017 End: 11-14-2017 [facility] Summary Purpose Family History No Family History Records FoundNo Family History Records Found Advance Directives No Advanced Directives Records FoundNo Advanced Directives Records Found Additional Source Comments (unrecognized sect ion and content) No Status Records FoundNo Status Records Found INFORMATION SOURCE (unrecogn ized section and content) DATE CREATED AUTHOR 03/14/2018 [facility] DATE CREATED AUTHOR AUTHOR'Dewayne WIGGINS 10/28/2021 [facility] FOR RECORDS PERTAINING TO PATIENTS WHO ARE OR HAVE BEEN ENROLLED IN A CHEMICAL DEPENDENCY/SUBSTANCEABUSE PROGRAM, SOME INFORMATION MAY BE OMITTED. This clinical summary was aggregated from multiple sources. Caution should be exercised in using it in the provision of clinical care. This summary normalizes information from multiple sources, and as a consequence, information in this document may materially change the coding, format and clinical context of patient data. In addition, data may be omitted in some cases. CLINICAL DECISIONS SHOULD BE BASED ON THE PRIMARY CLINICAL RECORDS. [employer] provides no warranty or guarantee of the accuracy or completeness of information in this document.
== END 2025-07-16 01:30 | disposition home or self-care (01) ==
LOC: ED 01:24
PROVIDERS: Emergency Provider Emergency Medicine; Visit Provider Emergency Medicine
DX: J20.8 Acute bronchitis due to other specified organisms (principal); I10 Essential (primary) hypertension; E66.9 Obesity, unspecified
CPT/HCPCS: 71046; 99282